=== PATIENT | male | born 1950 | race Caucasian/White ===

== ENCOUNTER 2017-08-31 08:04 | Inpatient (IN) | payer MEDICARE ==
--- NOTE | 2017-08-22 16:36 | HP ---
HISTORY AND PHYSICAL: DATE OF ADMISSION/SURGERY: 08/31/17 DATE OF OFFICE VISIT: 08/18/17 SURGEON: Camille Bain MD * (DICTATED BY JAYLENE MORAN) PROCEDURE: Right total knee arthroplasty. CHIEF COMPLAINT: Right knee pain. HISTORY OF PRESENT ILLNESS: Mr. Gonzalez is a 66-year-old gentleman with complaints of right knee pain secondary to end-state osteoarthritis. He has failed conservative management and elected to proceed with a right total knee arthroplasty which is scheduled for 08/31/[address] Bain. PAST MEDICAL HISTORY: Osteoarthritis. PAST SURGICAL HISTORY: Left first finger amputation. CURRENT MEDICATIONS: None. ALLERGIES: None. FAMILY HISTORY: Cancer. SOCIAL HISTORY: A 66-year-old gentleman who lives with his daughter. He smokes 15 cigarettes a day. He uses occasional marijuana and drinks 3 to 4 beers a day. REVIEW OF SYSTEMS: A complete 14-point review of systems was reviewed with the patient was all negative or noncontributory. PHYSICAL EXAMINATION GENERAL: He is well-developed, well-nourished, in no acute distress. VITAL SIGNS: He stands 6 feet 1 inches tall, weights 240 pounds. His blood pressure is 120/72, heart rate is 76. HEENT: Normocephalic, atraumatic. NECK: Supple with no palpable lymph nodes. PULMONARY: The lungs are clear to auscultation bilaterally. CARDIO: Regular rate and rhythm. Strong S1 and S2. ABDOMEN: Soft, nontender, and nondistended. NEUROLOGIC: He is alert and oriented x3. Cranial nerves II through XII are intact. MUSCULOSKELETAL: Right lower extremity skin is intact. There are no open wounds or abrasions. He has some tenderness over the medial and lateral joint line. He has a moderate effusion. 10 to 120 degrees of flexion with patellofemoral crepitus. 2+ dorsalis pedis pulses. His lower extremity muscular group strengths are intact at 5/5 and intact sensation. ASSESSMENT AND PLAN: Mr. Gonzalez is a 66-year-old gentleman with severe end- stage osteoarthritis of the right knee. He has failed conservative management and elected to proceed with a right total knee arthroplasty, which is scheduled for 08/31/[address] Bain discussed the risks and benefits of the surgery at today's visit and all of his questions were answered. Coumadin, Colace and Percocet were sent to his pharmacy for postoperative pain control and DVT prophylaxis. He will see Dr. Bain back 2 weeks after the surgery. JAYLENE MORAN [id number]/[facility] [place] #: [id number] MTDTonny
[~2017-08-31 08:04] MED LIST: Buffered Lidocaine 0.9% SYRIN* 5 ML/SYR SYRINGE INTRADERM ONE
[2017-08-31] MEDS ORDERED: Buffered Lidocaine 0.9% SYRIN* 5 ML/SYR SYRINGE ONE (08:06)
[2017-08-31] MEDS ORDERED: ceFAZolin 2 GM in 100 MLS NS (*) BAG IVPB ONE (08:06)
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
--- OUTSIDE RECORDS SUMMARY | 2017-08-31 08:13 | XMS REPORT ---
:1950 External Reference #:[id number] Author Organization [facility] Address [address] [address] Phone [phone] Care Team Providers Name Role Phone Rocky Peñaloza MD Primary Care Physician Unavailable Payers Type Date Identification Numbers Payment Provider Subscriber Health Maintenance Policy Number: Medicare Blue o Chalo Cooperder[facility] (O) [id number] PayID: [id number] [address] [address] [place] [address] Problems Date Description Provider Status Onset: 07/21/2017 Localized, primary osteoarthritis Camille Bain M.D. Active Social History Type Date Description Comments Lives With Roommate Occupation Currently Working ETOH Use Currently consumes alcohol Smoking Patient is a current smoker, smokes every day Exercise Type/Frequency Exercises sporadically Allergies, Adverse Reactions, Alerts Date Description Reaction Status Severity Comments 07/21/2017 NKDA active Medications Medication Date Status Form Strength Qnty SIG Indications Ordering Provider No Active 07/21/2017 Hx Unknown Medications - 08/28/2017 Vital Signs Date Vital Result Comment 08/18/2017 Height 73 inches 6'1" Weight 239.00 lb Heart Rate 76 /min BP Systolic 120 mmHg BP Diastolic 72 mmHg BMI (Body Mass Index) 31.5 kg/m2 07/21/2017 Height 73 inches 6'1" Weight 230.00 lb BP Systolic 143 mmHg BP Diastolic 79 mmHg Respiratory Rate 15 /min Body Temperature 97.5 F Pain Level 4 BMI (Body Mass Index) 30.3 kg/m2 Results Description No Information Procedures Date CPT Code Description Status 04/26/2011 48310 Rad Exam; Clavicle Comp Completed 04/05/2011 03103 Rad Exam; Clavicle Comp Completed 04/05/2011 98956 Closed TRTMT Clavicular Fracture Completed Encounters Type Date Location Provider CPT E/M Dx Office Visit 07/21/2017 [facility] Camille Bain M.D. 14054 M25.561 3[facility] M25.461 M17.11 Plan of Care Future Appointment(s):08/31/2017 10:00 am - JOHN Sofia at [facility]08/31/2017 10:00 am - JAYLENE Feliz at [facility]08/31/2017 10:00 am - Camille Bain M.D. at [facility]09/13/2017 10:30 am - Camille Bain M.D. at [facility]
[2017-08-31] MEDS ORDERED: Bupivacaine 0.25% SDV* 30 ML ONE (08:49)
[2017-08-31] MEDS ORDERED: Midazolam* 1 MG/ML 10 ML VIAL (10 MG) ONE (08:50)
[2017-08-31] MEDS ORDERED: Bupivacaine 0.5% SDV PF* 10-30ML VIAL ONE (09:12)
[2017-08-31] MEDS ORDERED: fentaNYL* 50 MCG/ML 2 ML VIAL (100 MCG VIAL) ONE (09:24)
[2017-08-31] MEDS ORDERED: Propofol* 10 MG/ML 20 ML BTL IV PUSH ONE (09:26)
[2017-08-31] MEDS ORDERED: Bisacodyl SUPP* 10 MG SUPP PR PRN (10:00)
[2017-08-31] MEDS ORDERED: oxyCODONE/Acetamin 5/325 MG* TAB PO PRN (10:00)
[2017-08-31] MEDS ORDERED: Ondansetron TAB* 4 MG PO PRN (10:00)
[2017-08-31] MEDS ORDERED: diPHENhydraMINE IV* 50 MG/ML 1 ml VIAL (BENADRYL) IV PRN (10:00)
[2017-08-31] MEDS ORDERED: Magnesium Hydroxide LIQ* 30 ML UDC PO PRN (10:00)
[2017-08-31] MEDS ORDERED: Ondansetron INJ* 2 MG/ML VIAL IV PRN ×2 (10:00→10:06)
[2017-08-31] MEDS ORDERED: Polyethylene Glycol 3350* 17 GM PACKET PO PRN (10:00)
[2017-08-31] MEDS ORDERED: Acetaminophen TAB* 325 MG PO PRN (10:00)
[2017-08-31] MEDS ORDERED: HYDROmorphone INJ* 1 MG/ML CARPUJECT SYRINGE IV PRN (10:06)
[2017-08-31] MEDS ORDERED: Scopolamine 1.5 mg* PATCH TRANSDERM PRN (10:06)
[2017-08-31] MEDS ORDERED: fentaNYL* 50 MCG/ML 2 ML VIAL (100 MCG VIAL) IV PRN (10:06)
[2017-08-31] MEDS ORDERED: Naloxone* 0.4 MG/ML 1 ML VIAL IV PRN (10:06)
[2017-08-31] MEDS ORDERED: Midazolam* 1 MG/ML 2 ML VIAL (2 MG) ONE (10:40)
[2017-08-31] MEDS ORDERED: Ondansetron INJ* 2 MG/ML VIAL ONE (11:01)
--- NOTE | 2017-08-31 13:19 | RAD ---
HISTORY: Status post right knee arthroplasty COMPARISONS: July 21, 2021 VIEWS: 2, Frontal and lateral views of the right knee FINDINGS: BONE DENSITY: Normal. BONES: The patient is status post right knee arthroplasty. There is no hardware failure or osteolysis. JOINTS: The patient is status post right knee arthroplasty ALIGNMENT: There is no dislocation. SOFT TISSUES: Unremarkable. OTHER FINDINGS: None. IMPRESSION: STATUS POST RIGHT KNEE ARTHROPLASTY
[2017-08-31] MEDS: Nicotine PATCH 21 MG/24 HR* PATCH TRANSDERM SCH (16:36)
[2017-08-31] MEDS: oxyCODONE/Acetamin 5/325 MG* TAB PO PRN ×2 (16:40→23:25)
[2017-08-31] MEDS ORDERED: Warfarin TAB(*) 6 MG PO ONE (17:00)
[2017-08-31] MEDS: ceFAZolin 1 GM in Dextrose (*) 1 GM/50 ML BAG IVPB SCH (17:29)
[2017-08-31] MEDS: Cyclobenzaprine TAB* 10 MG PO PRN (19:53)
[2017-08-31] MEDS: Magnesium Hydroxide LIQ* 30 ML UDC PO SCH (20:26)
[2017-08-31] MEDS: Docusate CAP* 100 MG PO SCH (20:26)
[2017-09-01] MEDS: ceFAZolin 1 GM in Dextrose (*) 1 GM/50 ML BAG IVPB SCH ×2 (01:39→09:26)
[2017-09-01] MEDS: Cyclobenzaprine TAB* 10 MG PO PRN (05:28)
[2017-09-01] MEDS: oxyCODONE TAB* 5 MG TAB PO PRN ×3 (05:28→20:17)
[2017-09-01 06:17] LABS: Hematocrit 32 % (42-52); Mean Platelet Volume 7 um3 (7.4-10.4); Platelet Count 206 10^3/ul (150-450)
[2017-09-01 06:21] LABS: INR 1.06 (0.77-1.02)
[2017-09-01 06:33] LABS: EGFR Non-African American 89.9 (>60)
[2017-09-01] MEDS: Magnesium Hydroxide LIQ* 30 ML UDC PO SCH ×2 (09:27→20:25)
[2017-09-01] MEDS: Docusate CAP* 100 MG PO SCH ×2 (09:27→20:25)
[2017-09-01] MEDS: oxyCODONE/Acetamin 5/325 MG* TAB PO PRN ×5 (09:27→22:19)
[2017-09-01] MEDS: Morphine INJ* 2 MG/ML 1 ML CARPUJECT IV PRN ×2 (09:40→14:32)
--- NOTE | 2017-09-01 12:28 | OP ---
DATE OF OPERATION: 08/31/17 - ROOM #[id number] DATE OF : [birth year] SURGEON: Camille Bain MD GEOTHERMAL ELECTRICAL ENGINEER: JAYLENE Allen. Mr. Rodriguez did help throughout the procedure with preparation of the leg, wound retraction, manipulation of the knee, and wound closure. ANESTHESIOLOGIST: Dr. Gottlieb. ANESTHESIA: Spinal. PRE-OP DIAGNOSIS: Severe end-stage degenerative osteoarthritis of the right knee joint. POST-OP DIAGNOSIS: Severe end-stage degenerative osteoarthritis of the right knee joint. OPERATIVE PROCEDURE: Right total knee arthroplasty. TOURNIQUET TIME: 53 minutes. COMPLICATIONS: None. ESTIMATED BLOOD LOSS: 250 cc. HARDWARE USED: This is cemented Silva and Nephew total knee arthroplasty hardware. For the cement, 2 packages of Simplex bone cement. For the femur, a size 8 right posterior stabilized Legion non-porous femoral component. For the tibia, a size 7 Deana II right non-porous tibial baseplate. For the insert, a 9-mm posterior stabilized articular insert, size 7/8. For the patella, 35-mm 3-peg all poly patella. BRIEF HISTORY/INDICATION: Mr. Gonzalez is a 66-year-old gentleman with years of increasingly severe right knee pain. The patient failed conservative treatment with anti-inflammatories, pain medication, intra-articular injection, and physical therapy. Radiographs showed dihr-dp-hjrn arthritis. Due to continued pain and decreased quality of life, he elected to undergo a right total knee arthroplasty. Informed consent was obtained from the patient. He understood the risks of surgery included, but were not limited to bleeding, infection, damage to nearby structures, continued pain, need for further surgery , intraoperative fracture, nerve palsy, hardware failure or loosening, knee stiffness, loss of motion, stroke, heart attack, blood clot, and . He wished to proceed. INTRAOPERATIVE FINDINGS: Intraoperatively, the patient was noted to have severe end-stage arthritis. He has complete loss of cartilage in the medial and patellofemoral compartments with extensive osteophyte formation. DESCRIPTION OF PROCEDURE: Mr. Gonzalez was identified in the preanesthesia unit. His right lower extremity was marked as the correct operative side. Informed consent was signed and placed in the chart. The patient was taken to the operating room and placed under spinal anesthesia. A Toussaint catheter was placed. Tourniquet was placed on the right thigh. Right lower extremity was prepped and draped in the usual sterile fashion. Preop time-out was made to correctly identify the patient's side and site. Appropriate perioperative antibiotics were given within 1 hour of incision. Tourniquet was inflated and total tourniquet time for this procedure was 53 minutes. A midline incision was made with a 10-blade and carried down to the extensor mechanism. A new 10-blade was used to make a standard medial parapatellar arthrotomy. The patella was subluxed laterally. Electrocautery was used to subperiosteally elevate the soft tissue off the superomedial tibia to the mid sagittal plane. The knee was flexed up. The anterior horn of the lateral meniscus and ACL were sharply released. A drill was used to enter the distal femur. Intramedullary distal femoral cutting guide was pinned on the distal femur. Oscillating saw was used to make the appropriate distal femoral cut. An additional 2-mm of bone was taken because of the patient's significant flexion contracture preoperatively of 15 degree. Next, the external rotation guide was pinned on the distal femur. The distal femur was sized to a size 8. Size 8 multi-cutting jig was pinned on the distal femur. Oscillating saw was used to make the appropriate 4 chamfer cuts. The PCL was completely released. The tibia was subluxed anteriorly. Extramedullary tibial cutting guide was pinned on the proximal tibia. Oscillating saw was used to make the proximal tibial cut perpendicular to the mechanical axis of the tibia. The bone was carefully removed. The knee was brought out into full extension. Spacer block had good fit medially and laterally. Some osteophytes were removed from around the medial tibial plateau. Flexion and extension gaps were well balanced. The knee was flexed up. Lamina divinity professor was placed both medially and laterally. Any remaining meniscus was carefully removed using electrocautery. Curved osteotome was used to remove posterior osteophytes. Tibial tray and drop junaid were placed to once again confirm a satisfactory proximal tibial cut and this was confirmed. The size 8 right femoral trial was impacted on to the distal femur and had excellent fit. The box for the posterior stabilized implant was prepared using a reamer and box cut osteotome. Size 7 tibial tray trial with a 9-mm insert trial was placed and the knee was taken through a range of motion. The knee had full extension to 130 degrees of flexion. There was satisfactory patellofemoral tracking. The patella was everted. A 9-mm of patellar bone and cartilage was removed using an oscillating saw. Patella was sized to a size 35. Three peg holes were drilled through the size 35 guide. A 35 trial patella was placed and the knee was taken through a range of motion. There was satisfactory patellofemoral tracking. All trials were carefully removed. The tibia was subluxed anteriorly and sized to a size 7. Proximal tibia was prepared using a size 7 keel punch. All bony cut surfaces were copiously irrigated with sterile saline and dried. The final implants were cemented into place starting with the tibia, followed by the femur and last the patella. A 9-mm insert trial was placed and the knee was brought out into full extension. Tourniquet was turned down at 53 minutes. Electrocautery was used to obtain meticulous hemostasis. The knee was copiously irrigated with sterile saline. Once the cement had fully cured, the insert trial was removed. Any excess cement was removed from around the capsule and hardware. Final insert chosen was a 9-mm posterior stabilized articular insert, size 7/8. This was locked into position on the tibial tray without difficulty. Stability of the insert was checked and rechecked and noted to be stable. The extensor mechanism was closed using interrupted #1 Vicryls over a medium Hemovac drain. The rest of the incision was closed in a layered fashion using 0 and 2-0 Vicryls. Skin was closed using running 3-0 nylon suture. Sterile Xeroform, 4x4s, and Webril were used to cover the incision. Marin wrap and cold pack were placed over this. The patient's anesthesia was reversed without difficulty. He was taken to the PACU in stable condition. Intended weightbearing will be weightbearing as tolerated. Intended DVT prophylaxis will be Coumadin with a Lovenox bridge. [id number]/[facility] #: [id number] [facility]ny
[2017-09-01] MEDS: Enoxaparin(*) 40 MG/0.4 ML SYR SUBCUT SCH (13:26)
[2017-09-01] MEDS: Nicotine PATCH 21 MG/24 HR* PATCH TRANSDERM SCH (14:32)
[2017-09-01] MEDS: Nicotine Patch Removal NOTE PATCH OFF SCH (15:14)
[2017-09-01] MEDS ORDERED: Morphine INJ* 2 MG/ML 1 ML CARPUJECT IV ONE (15:19)
--- NOTE | 2017-09-01 15:49 | PN ---
Progress Note - Progress Note Date of Service: 09/01/17 SOAP: Subjective: Patient is seen at bedside, sitting comfortably in chair. Right knee is painful with any movement. He had some dizziness and lightheadedness overnight, soft blood pressures overnight. He is not currently having any dizziness, nausea/ vomiting, fevers, chills, numbness or tingling. No CP or SOB. States pain is now well controlled. Was not able to do PT this morning per pain. Objective: Temp Pulse Resp BP Pulse Ox 98.0 F 70 20 121/51 96 09/01/17 07:27 09/01/17 09:36 09/01/17 14:32 09/01/17 09:36 09/01/17 09:56 Laboratory Results - last 24 hr 08/31/17 09/01/17 09/01/17 23:49 05:56 05:56 Hgb 11.0 L Hct 32 L Plt Count 206 MPV 7 L INR (Anticoag Therapy) 1.06 H Sodium Potassium Chloride Carbon Dioxide Anion Gap BUN Creatinine Est GFR ( Amer) Est GFR (Non-Af Amer) BUN/Creatinine Ratio Glucose POC Glucose (mg/dL) 99 Calcium 09/01/17 05:56 Hgb Hct Plt Count MPV INR (Anticoag Therapy) Sodium 135 Potassium 4.2 Chloride 104 Carbon Dioxide 27 Anion Gap 4 BUN 11 Creatinine 0.85 Est GFR ( Amer) 115.6 Est GFR (Non-Af Amer) 89.9 BUN/Creatinine Ratio 12.9 Glucose 117 H POC Glucose (mg/dL) Calcium 8.1 L General: Well appearing, well developed, NAD. Sitting comfortably in chair. Neuro: No tremor with dorsiflexion bilateral hands. RLE: Dressing CDI with no surrounding erythema. DF/PF intact. 2+ DP pulse. Sensation intact to light touch distally. Drain pulled today, tip intact. BL LE: Calves supple and nontender without erythema, edema or palpable cords. Assessment: POD 1 S/P right total hip replacement 08/31/17, Dr Bain Plan: WBAT PT/OT Hip precautions Lovenox, coumadin 6 mg today Continue to monitor for signs of withdrawal from alcohol Continue nicotine patches for tobacco withdrawal Continue to monitor BP closely, consider hospitalist consult if continues to have soft blood pressure Maintain good pain control so may participate in PT/OT DC tomorrow
[2017-09-01] MEDS ORDERED: Warfarin TAB(*) 6 MG PO ONE (17:00)
[2017-09-02] MEDS: Cyclobenzaprine TAB* 10 MG PO PRN (03:57)
[2017-09-02] MEDS: oxyCODONE TAB* 5 MG TAB PO PRN ×3 (03:58→15:41)
[2017-09-02 05:01] LABS: Hematocrit 31 % (42-52); Hemoglobin 10.3 g/dl (14.0-18.0); Mean Platelet Volume 7 um3 (7.4-10.4); Platelet Count 189 10^3/ul (150-450)
[2017-09-02 05:26] LABS: INR 1.43 (0.77-1.02)
[2017-09-02] MEDS: oxyCODONE/Acetamin 5/325 MG* TAB PO PRN ×2 (07:41→12:35)
[2017-09-02 07:58] VITALS: BP 118/51
--- NOTE | 2017-09-02 08:18 | PN ---
Progress Note - Progress Note Date of Service: 09/02/17 SOAP: Subjective: [Pt reports minimal discomfort at rest. Slept. Had "rough day" yesterday - a lot of pain. Participated in PT. Stairs. Still using IV morphine for pain management. Denies Nausea, dizziness, SOB. Anxious about pain increasing with activity but motivated to D/C morphine.] Objective: [A and O x 3, NAD R knee dressing changed - Surgical site benign. No erythema or drainage. Skin edges well-approximated with sutures. Calves soft, NT. Distal gross motor and NV function intact. Laboratory Results - last 24 hr 09/02/17 09/02/17 04:49 04:50 Hgb 10.3 L Hct 31 L Plt Count 189 MPV 7 L INR (Anticoag Therapy) 1.43 H Laboratory Results - last 24 hr 09/02/17 09/02/17 04:49 04:50 Hgb 10.3 L Hct 31 L Plt Count 189 MPV 7 L INR (Anticoag Therapy) 1.43 H Vital Signs: Temp Pulse Resp BP Pulse Ox 98.1 F 80 18 118/51 94 09/02/17 07:22 09/02/17 07:22 09/02/17 08:00 09/02/17 07:22 09/02/17 07:22 ] Assessment: [66 yo male s/p R TKA POD #2] Plan: WBAT RLE Con't PT/OT Lovenox Coumadin 6 mg today Pain management Plan for D/C tomorrow Vital Signs: Temp Pulse Resp BP Pulse Ox 98.1 F 80 18 118/51 94 09/02/17 07:22 09/02/17 07:22 09/02/17 07:41 09/02/17 07:22 09/02/17 07:22 Laboratory Results - last 24 hr 09/02/17 09/02/17 04:49 04:50 Hgb 10.3 L Hct 31 L Plt Count 189 MPV 7 L INR (Anticoag Therapy) 1.43 H []
[2017-09-02] MEDS: Docusate CAP* 100 MG PO SCH (08:35)
[2017-09-02] MEDS: Magnesium Hydroxide LIQ* 30 ML UDC PO SCH (08:42)
[2017-09-02] MEDS: Enoxaparin(*) 40 MG/0.4 ML SYR SUBCUT SCH (12:32)
[2017-09-02] MEDS: Nicotine PATCH 21 MG/24 HR* PATCH TRANSDERM SCH (16:39)
[2017-09-02] MEDS: Nicotine Patch Removal NOTE PATCH OFF SCH (16:39)
[2017-09-02] MEDS ORDERED: Warfarin TAB(*) 6 MG PO ONE (17:00)
[2017-09-03] MEDS ORDERED: Scopolamine PATCH Remove* 1 NOTE MISC PATCH OFF ONE (10:08)
--- NOTE | 2017-09-04 23:59 | DS ---
DISCHARGE SUMMARY: DATE OF ADMISSION: 08/31/17 DATE OF DISCHARGE: 09/02/17 PROVIDER: Camille Bain MD ADMITTING PHYSICIAN: Dr. Bain. ADMITTING DIAGNOSIS: Right knee osteoarthritis. DISCHARGE DIAGNOSIS: Status post right total knee arthroplasty. PROCEDURE: Right total knee arthroplasty. CONSULTANTS: Physical Therapy and Occupational Therapy. BRIEF HISTORY: Mr. Gonzalez is a 66-year-old male with severe degenerative osteoarthritis of his right knee. He failed conservative treatment measures and elected to undergo a right total knee arth roplasty on 08/31/[address] Bain. HOSPITAL COURSE: Mr. Gonzalez was admitted to [facility] on 08/31/17. He underwent an uncomplicated right total knee arthroplasty. Postoperatively, he recovered on the short stay surgica l unit. His Toussaint catheter was removed on postoperative day 1 and he was able to urinate on his own. He also had a drain removed from his knee on postoperative day 1. On the morning of postoperative day 2, he was able to have a bowel movement and he advanced to regular diet without difficulty. He h ad some initial issues with pain management; however, by mid-day postoperative day 2, his pain was we ll controlled with p.o. medications. His vital signs and labs remained stable and he was able to mark r weight as tolerated on the right lower extremity. He advanced appropriately with physical therapy and occupational therapy. His DVT prophylaxis was bridged with Lovenox and Coumadin while in the [facility] pital. By postoperative day 2, he was orthopedically and medically stable for discharge home with [facility]. PHYSICAL EXAMINATION: General: On examination, the patient is noted to be calm and cooperative, in no acute distress. He is alert and oriented x3. Vital signs on the day of discharge; temperature 98 .1 degrees Fahrenheit, pulse rate 80, respiratory rate 17, O2 sat 94% on room air, blood pressure 118 /51. Examination of the right lower extremity demonstrates the dressing overlying the right knee whi ch is clean, dry, and intact. His calf is soft and nontender. He has 2+ palpable DP pulse. 5/5 ank le dorsiflexion, plantar flexion, and strength. Sensation is intact to light touch. LABORATORY DATA: On the day of discharge, hemoglobin 10.3, hematocrit 31. INR 1.43. RADIOGRAPHS: Postoperative radiograph of the right knee demonstrated right total knee arthroplasty w ith satisfactory prosthesis placement. No acute bony abnormalities. DISCHARGE MEDICATIONS: 1. Percocet 5/325 mg 1 to 2 tabs p.o. q.4 to 6 hours p.r.n. pain. 2. Morphine ER 30 mg 1 tab up to twice daily for breakthrough pain. 3. Colace 100 mg p.o. t.i.d. p.r.n. constipation. 4. Coumadin 6 mg on 09/02/17 and 6 mg on Monday09/03/17, dosage to be adjusted after . DISCHARGE INSTRUCTIONS: Mr. Gonzalez is a 66-year-old male, postoperative day #2, status post rig ht total knee arthroplasty which was uncomplicated. He is orthopedically and medically stable to be discharged home with services. He has stable vital signs and labs. He will take 6 mg of Coumadin on Monday and on Monday night and will have his INR rechecked on Monday. He will have INR draws on and with visiting nurse services. He will remain weightbearing as tolerated on the right lower extremity and have home physical therapy twice a day. He will take Percocet and morphine ER p.r.n. for pain control. He will take Colace up to 3 times a day for constipation and he will fo llow up in the office with Dr. Bain in 10 to 14 days for incision check and suture removal. He was instructed to call Dr. Bain or go immediately to the ER should he develop any new fevers, chills, in cision pain, redness, or drainage. He was instructed to go immediately to the ER should he develop c hest pain or shortness of breath. JAYLENE RANDHAWA [id number]/[facility] #: [id number]
== END 2017-09-02 16:40 | disposition home or self-care (01) | DRG 470 ==
LOC: AA 08:04 → SSU 15:19
PROVIDERS: ADMIT Orthopaedic Surgery Adult Reconstructive Orthopaedic Surgery; ATTEND Orthopaedic Surgery Adult Reconstructive Orthopaedic Surgery
PROC: 0SRC0J9 Replacement of Right Knee Joint with Synthetic Substitute, Cemented, Open Approach (ICD-10-PCS; principal; 2017-08-31 09:30)
DX: M17.11 Unilateral primary osteoarthritis, right knee (principal); F12.90 Cannabis use, unspecified, uncomplicated; F41.9 Anxiety disorder, unspecified; M25.761 Osteophyte, right knee; F17.210 Nicotine dependence, cigarettes, uncomplicated; Z80.9 Family history of malignant neoplasm, unspecified; Z89.022 Acquired absence of left finger(s); Z72.89 Other problems related to lifestyle
CPT/HCPCS: 36415; 80048; 85014; 85018; 85049; 85610; 94760; A9270-GY; C1776; J0690; J1650; J2250; J2270; J2405; J2704; J3010